=== PATIENT | female | born 1955 | race Caucasian/White ===

== ENCOUNTER 2020-07-04 08:03 | Emergency (ER) | payer SELFPAY ==
[2020-07-04 08:04] VITALS: BP 137/69; PULSE 66; RESP 16; TEMP 36.6; O2SAT 98; BMI 22.6
--- NOTE | 2020-07-04 08:13 | HMH.EDNVD ---
ED Disposition Clinical Impression: Acute nausea with nonbilious vomiting, Acute diarrhea, Dehydration Urinary tract infection Qualifiers: Urinary tract infection type: acute cystitis Hematuria presence: with hematuria Qualified Code(s): N30.01 - Acute cystitis with hematuria Disposition: Home, Self-Care Condition on Discharge: Good Instructions: Nausea and Vomiting-Adult, DI for Diarrhea and Traveler's Diarrhea -- Adult, DI for Urinary Tract Infection (UTI) Prescriptions: Cefdinir [Omnicef 300mg Capsule] 300 mg PO BID 7 Days #14 cap Transmission Status: Pending to [id number] Ondansetron [Zofran 4mg ODT] 4 mg PO TIDP PRN #9 tab PRN Reason: Vomiting Transmission Status: Pending to [id number] Referrals: Moreno Almeida [Primary Care Provider] - Time of Disposition: 09:15 - Critical Care Critical Care Time: No Attestation: On 07/04/20, the high probability of a clinically significant, sudden or life threatening deterioration of the following system(s) required my full and direct attention, intervention and personal management. The time I documented below is in addition to time spent performing reported procedures but includes the following listed in this critical care notation. Medical Decision Making - Medical Records Medical records reviewed: Yes: I reviewed the patient's medical records. - Singh Inquiry Pt receiving controlled substance: No Vital Signs: 07/04/20 08:04 Temperature 97.8 F Temperature Source Oral Pulse Rate [Radial] 66 Respiratory Rate 16 Blood Pressure [Right Arm] 137/69 Blood Pressure Mean [Right Arm] 91 Blood Pressure Position [Right Arm] Sitting 02 Sat by Pulse Oximetry 98 Oxygen Delivery Method Room Air - Lab Data Lab Results 07/04/20 08:15: Urine Color Yellow, Urine Appearance Clear, Urine pH 6.0, Ur Specific [place] 1.020, Urine Protein Trace, Urine Glucose (UA) Negative, Urine Ketones 3+, Urine Blood 1+, Urine Nitrate Negative, Urine Bilirubin Negative, Urine Urobilinogen 0.2, Ur Leukocyte Esterase Negative, Urine RBC 5-10, Urine WBC 3-5, Ur Squamous Epith Cells 3-5, Urine Bacteria None 07/04/20 08:15: WBC 10.6, RBC 4.87, Hgb 13.8, Hct 42.7, MCV 87.7, MCH 28.4, MCHC 32.4, RDW 13.2, Plt Count 226, MPV 9.2, Neut % (Auto) 80.2 H, Lymph % (Auto) 14.0, [place] % (Auto) 4.8, Eos % (Auto) 0.8, Baso % (Auto) 0.2, Neut # (Auto) 8.5 H, Lymph # (Auto) 1.5, [place] # (Auto) 0.5, Eos # (Auto) 0.1, Baso # (Auto) 0.0 07/04/20 08:15: Sodium 138, Potassium 3.5, Chloride 105, Carbon Dioxide 23, Anion Gap 13.5, BUN 20 H, Creatinine 0.50 L, Estimated Creat Clear 49, Estimated GFR 124, Est GFR ( Amer) 150, Glucose 182 H, Calcium 9.5, Total Bilirubin 0.6, AST 36, ALT 27, Alkaline Phosphatase 65, Total Protein 7.8, Albumin 4.8, Globulin 3.0, Albumin/Globulin Ratio 1.6, Lipase 182 Result diagrams: 07/04/20 08:15 07/04/20 08:15 Orders (Tests/Meds): ED MEDICATIONS Generic Name Dose Route Start Last Admin Trade Name Freq PRN Reason Stop Dose Admin Sodium Chloride 1,000 mls @ 999 mls/hr 07/04/20 08:15 07/04/20 08:34 Sod Chlor 0.9% 1000ml Bag IV 07/04/20 09:15 999 mls/hr .Q1H1M BRENDAN Administration Sodium Chloride 10 ml 07/04/20 08:15 Sodium Chloride 0.9% 10ml Flush Syringe IV 07/04/20 20:15 NEEDED PRN Maintain IV Site Discontinued Medications Generic Name Dose Route Start Last Admin Trade Name Freq PRN Reason Stop Dose Admin Ondansetron HCl 4 mg 07/04/20 08:15 07/04/20 08:34 Ondansetron 4mg/2ml Vial IV 07/04/20 08:16 4 mg ONCE ONE Administration - Reevaluation(s) Time: 09:14 Reevaluation #1: Patient feeling well with no further episodes of vomiting. Discussed plan of care and appropriate return precautions including fever bloody diarrhea or severe abdominal pain. Discussed plan for prescriptions and follow-up. Medical Decision Narrative: 65-year-old female who presents with nausea vomiting and diarrhea for 2
[2020-07-04 08:24] LABS: Microscopic, Urine URINE MICROSCOPIC (MICROSCOPIC)
[2020-07-04 08:31] LABS: Basophils % 0.2 % (0.1-2.0); Eosinophils # 0.1 K/mm3 (0.0-0.4); Eosinophils % 0.8 % (0.1-12.0); Hematocrit 42.7 % (37.0-47.0); Hemoglobin 13.8 g/dL (12.2-16.2); Lymphocytes # 1.5 K/mm3 (0.7-4.5); Mean Corpuscular HGB Conc 32.4 g/dL (31.8-35.4); Mean Corpuscular Hemoglobin 28.4 pg (27.0-31.2); Mean Corpuscular Volume 87.7 fl (81-99); Mean Platelet Volume 9.2 fl (7.4-10.4); Monocytes # 0.5 K/mm3 (0.1-1.0); Monocytes % 4.8 % (1.7-9.3); Neutrophils # 8.5 K/mm3 (1.8-7.8); Neutrophils % 80.2 % (37.0-80.0); Platelet Count 226 K/mm3 (142-424); Red Blood Count 4.87 M/mm3 (4.20-5.40); Red Cell Distribution Width 13.2 % (11.5-17.5); White Blood Count 10.6 K/mm3 (4.8-10.8)
[2020-07-04 08:37] LABS: Appearance,Urine CLEAR (Clear); Bilirubin,Urine Negative (Negative); Blood, Urine 1+ (Negative); Chloride 105 mmol/L (98-107); Color,Urine YELLOW (Yellow); Glucose,Urine (UA) Negative (Negative); Ketones,Urine 3+ (Negative); Leukocyte Esterase,Urine Negative (Negative); Nitrate,Urine Negative (Negative); Potassium 3.5 mmoL/L (3.5-5.1); Protein,Urine TRACE (Negative); Sodium 138 mmol/L (136-145); Urobilinogen,Urine 0.2 EU/dl (0.2)
[2020-07-04 08:40] LABS: Alanine Aminotransferase 27 U/L (12-78); Albumin Level 4.8 g/dl (3.5-5.0); Albumin/Globulin Ratio 1.6 (1.1-1.8); Alkaline Phosphatase 65 U/L (38-126); Anion Gap 13.5 mEq/L (5-15); Aspartate Amino Transferase 36 U/L (14-36); Bilirubin,Total 0.6 mg/dl (0.2-1.3); Blood Urea Nitrogen 20 mg/dl (7-17); Calcium 9.5 mg/dl (8.4-10.2); Carbon Dioxide 23 mmol/L (22.0-30.0); Creatinine Clearance Estimated 49 mL/min (50-200); Estimated Glomerular Filt Rate 124 ml/min (>60); GFR (African American) 150 ML/MIN (>60); Glucose 182 mg/dl (74-100); Lipase 182 U/L (23-300); Total Protein,Serum 7.8 g/dl (6.3-8.2)
--- NOTE | 2020-07-04 09:52 | PC.NURSE ---
pt with rad. VS delayed.
[2020-07-04 09:54] VITALS: BP 129/74; PULSE 78; RESP 16; TEMP 36.6; O2SAT 98
== END 2020-07-04 09:55 | disposition home or self-care (01) ==
PROVIDERS: Emergency Provider Student in an Organized Health Care Education/Training Program; PCP Pediatrics
DX: N30.01 Acute cystitis with hematuria (principal); E86.0 Dehydration
CPT/HCPCS: 80053; 81001; 83690; 85025; 96365; 96375; 99282; J2405

== ENCOUNTER → 2022-04-18 08:04 | Outpatient (CLI) | payer SELFPAY ==
[2022-04-18 09:50] LABS: Alanine Aminotransferase 16 U/L (12-78); Albumin Level 4.3 g/dl (3.5-5.0); Albumin/Globulin Ratio 1.8 (1.1-1.8); Alkaline Phosphatase 75 U/L (38-126); Anion Gap 10.6 mEq/L (5-15); Aspartate Amino Transferase 26 U/L (14-36); Bilirubin,Total 0.3 mg/dl (0.2-1.3); Blood Urea Nitrogen 16 mg/dl (7-17); Carbon Dioxide 28 mmol/L (22.0-30.0); Chloride 106 mmol/L (98-107); Chol/HDL Ratio 2.3 (1-3.5); Cholesterol 150 mg/dl (140-200); Estimated Glomerular Filt Rate 124 ml/min (>60); GFR (African American) 150 ML/MIN (>60); Globulin 2.4 g/dL (1.3-3.2); Glucose 144 mg/dl (74-100); HDL Cholesterol 65 mg/dl (40-60); Potassium 4.6 mmoL/L (3.5-5.1); Sodium 140 mmol/L (136-145); Total Protein,Serum 6.7 g/dl (6.3-8.2); Triglycerides 85 mg/dl (30-150); VLDL Cholesterol 17 mg/dL (0-40)
[2022-04-18 10:01] LABS: Direct LDL Cholesterol 72.34 mg/dL (100-129)
[2022-04-18 10:07] LABS: T4 (Thyroxine) 9.1 ug/dl (5.53-11.0)
[2022-04-18 18:45] LABS: Hemoglobin A1C 7.2 % (4.0-6.0)
[2022-04-20 13:17] LABS: Triiodothyronine (T3) Total 113 ng/dL (71-180)
== END ==
PROVIDERS: PCP Pediatrics; Visit Provider Pediatrics
DX: E11.69 Type 2 diabetes mellitus with other specified complication (principal); E03.9 Hypothyroidism, unspecified
CPT/HCPCS: 36415; 80053; 80061; 83036; 84436; 84443; 84480; 84481

== ENCOUNTER → 2022-09-18 06:56 | Outpatient (CLI) | payer SELFPAY ==
[2022-09-18 09:24] LABS: Creatinine,Urine Random 61 mg/dL (Not Estab.)
[2022-09-18 09:29] LABS: Alanine Aminotransferase 25 U/L (12-78); Albumin Level 3.8 g/dl (3.5-5.0); Albumin/Globulin Ratio 1.7 (1.1-1.8); Alkaline Phosphatase 80 U/L (38-126); Anion Gap 8.1 mEq/L (5-15); Aspartate Amino Transferase 28 U/L (14-36); Bilirubin,Total 0.2 mg/dl (0.2-1.3); Blood Urea Nitrogen 13 mg/dl (7-17); Calcium 8.8 mg/dl (8.4-10.2); Carbon Dioxide 27 mmol/L (22.0-30.0); Chloride 107 mmol/L (98-107); Chol/HDL Ratio 1.9 (1-3.5); Cholesterol 138 mg/dl (140-200); Estimated Glomerular Filt Rate 160 ml/min (>60); GFR (African American) 193 ML/MIN (>60); Globulin 2.3 g/dL (1.3-3.2); Glucose 160 mg/dl (74-100); HDL Cholesterol 72 mg/dl (40-60); Microalbumin < 6.000 mg/L (0-16.7); Potassium 4.1 mmoL/L (3.5-5.1); Sodium 138 mmol/L (136-145); Total Protein,Serum 6.1 g/dl (6.3-8.2); Triglycerides 147 mg/dl (30-150); VLDL Cholesterol 29 mg/dL (0-40)
[2022-09-18 09:48] LABS: Hemoglobin A1C 7.9 % (4.0-6.0)
[2022-09-18 09:59] LABS: Thyroid Stimulating Hormone 1.26 uIU/mL (0.465-4.68)
[2022-09-19 12:13] LABS: C-Peptide 1.5 ng/mL (1.1-4.4)
[2022-10-24 08:04] LABS: Fructosamine 310
== END ==
PROVIDERS: PCP Pediatrics; Visit Provider Specialist
DX: E11.65 Type 2 diabetes mellitus with hyperglycemia (principal); E11.69 Type 2 diabetes mellitus with other specified complication; E78.5 Hyperlipidemia, unspecified; Z79.84 Long term (current) use of oral hypoglycemic drugs
CPT/HCPCS: 36415; 80053; 80061; 82043; 82570; 82985; 83036; 84443; 84681

== ENCOUNTER 2024-06-27 08:50 | Observation (INO) | payer SELFPAY ==
[2024-06-27] VITALS (10 sets, daily range): BP systolic 112–140; BP diastolic 46–60; PULSE 65–80; RESP 14–18; TEMP 36.4–37.1; O2SAT 97–100; BMI 24.1; BMI 24.0
--- NOTE | 2024-06-27 08:56 | HMH.EDGENADL ---
Discharge Plan Disposition Patient Disposition: Admitted Clinical Impressions Clinical Impression: Pancreatitis Discharge ED Provider: Alexys Garcia General Adult HPI General Chief complaint: Nausea/Vomiting/Diarrhea Stated complaint: V/D x 2xdays, abd pain Time Seen by Provider: 06/27/24 08:56 History of Present Illness HPI narrative: Cinda Sky is a 69y female with a history of diabetes mellitus on metformin and high cholesterol who presents to the emergency department for nausea, vomiting, diarrhea and abdominal pain that began yesterday. Patient states that she has had episodes of nausea, vomiting, diarrhea and epigastric abdominal pain that have occurred in the past after eating greasy foods. She states that she is been worked up at an outside hospital with a right upper quadrant ultrasound earlier this year that was negative for any gallbladder pathology. She states that last night, 3 hours after eating, she developed pain in her epigastric region as well as nonbilious nonbloody vomiting and nonbloody diarrhea. She states that the pain does not radiate and is localized to her epigastric region. She also reports that she has had some burning with urination that began today, although she has not been able to eat anything since earlier yesterday. She denies any chest pain or shortness of breath or fever. Related Data Home Medications ?Medication ?Instructions ?Recorded ?Confirmed glimepiride 1 mg tablet 1 mg PO DAILY 06/27/24 06/27/24 metformin 750 mg tablet,extended 750 mg PO DAILY 06/27/24 06/27/24 release 24 hr pioglitazone 30 mg tablet 30 mg PO DAILY 06/27/24 06/27/24 rosuvastatin 20 mg tablet 20 mg PO AM 06/27/24 06/27/24 Allergies Allergy/AdvReac Type Severity Reaction Status Date / Time lisinopril Allergy allergy Verified 06/27/24 09:52 [facility] Disclaimer: The information contained in this section may have been updated after the patient was seen, as this information can be updated by other users. Medical History Hyperlipidemia Diabetes mellitus, type 2 Family History Other Thyroid cancer Social History Smoking Status: Never smoker alcohol intake: never substance use type: denies use current occupational status: retired Travel in the last 8 weeks: None Other Medical History Have you received the Flu Vaccine for this season: Yes Have you received the Pneumonia Vaccine: No ROS Obtained: Yes Systems reviewed as appropriate & no additional complaints except as documented Physical Exam General General appearance: alert and in no apparent distress Comment: Appears uncomfortable Head Head exam: atraumatic Eye Eye exam: Present normal appearance ENT ENT exam: Present normal external ear exam Neck Neck exam: Present full ROM Chest Chest inspection: Present symmetric chest wall rise Respiratory Respiratory exam: Present normal lung sounds bilaterally; Absent respiratory distress Cardiovascular Cardiovascular exam: Present regular rate and normal rhythm Abdominal Exam Abdominal exam: Present soft, tenderness (Epigastric region with guarding in this area) and guarding; Absent distention or rebound Extremities Exam Extremities exam: Present normal inspection Back Exam Back exam: Present normal inspection Neurological Exam Neurological exam: Present alert and oriented X3 Psychiatric Psychiatric exam: Present normal affect Skin Skin exam: Present warm and dry Medical Decision Making Medical Records Screening: Per USPSTF and CDC recommendations, given the prevalence of disease in our region, it is our hospital?s policy to screen for HIV and viral Hepatitis for all patients aged 18 and over and those with ongoing risk factors. Singh Inquiry Pt receiving controlled substance: No Vital Signs: 06/27/24 08:55 06/27/24 09:00 06/27/24 09:01 Temperature 97.6 F Temperature Source Oral Pulse Rate 79 71 Pulse Rate [Right] 79 Respiratory Rate 16 Blood Pressure 140/48 L 124/57 L Blood Pressure [Right Arm] 140/48 L Blood Pressure Mean [Right Arm] 78 Blood Pressure Source Blood Pressure Source [Right Arm] Automatic Cuff Blood Pressure Position Blood Pressure Position [Right Arm] Sitting 02 Sat by Pulse Oximetry 100 100 100 Oxygen Delivery Method Room Air 06/27/24 09:31 06/27/24 10:28 06/27/24 10:30 Temperature Temperature Source Pulse Rate 71 67 67 Pulse Rate [Right] Respiratory Rate 18 14 Blood Pressure 128/48 L 112/47 L 124/46 L Blood Pressure [Right Arm] Blood Pressure Mean [Right Arm] Blood Pressure Source Blood Pressure Source [Right Arm] Blood Pressure Position Blood Pressure Position [Right Arm] 02 Sat by Pulse Oximetry 99 100 100 Oxygen Delivery Method Room Air Room Air 06/27/24 11:01 06/27/24 11:41 Temperature 97.6 F Temperature Source Oral Pulse Rate 65 65 Pulse Rate [Right] Respiratory Rate 17 16 Blood Pressure 119/47 L 119/47 L Blood Pressure [Right Arm] Blood Pressure Mean [Right Arm] Blood Pressure Source Automatic Cuff Blood Pressure Source [Right Arm] Blood Pressure Position Supine Blood Pressure Position [Right Arm] 02 Sat by Pulse Oximetry 99 Oxygen Delivery Method Room Air Room Air Lab Data Lab Results 06/27/24 08:56: Urine Color Yellow, Urine Appearance Clear, Urine pH 6.0, Ur Specific [place] >= 1.030, Urine Protein Negative, Urine Glucose (UA) Negative, Urine Ketones 2+, Urine Blood 2+ A, Urine Nitrate Negative, Urine Bilirubin Negative, Urine Urobilinogen 0.2, Ur Leukocyte Esterase Negative, Urine RBC 5-10, Urine WBC Occasional, Ur Squamous Epith Cells Occasional, Urine Bacteria Trace 06/27/24 09:12: WBC 8.3, RBC 4.41, Hgb 12.9, Hct 38.1, MCV 86.4, MCH 29.3, MCHC 33.9, RDW 13.2, Plt Count 173, MPV 10.8 H, Neut % (Auto) 88.7 H, Lymph % (Auto) 5.9 L, [place] % (Auto) 4.8, Eos % (Auto) 0.1, Baso % (Auto) 0.1, Neut # (Auto) 7.3, Lymph # (Auto) 0.5 L, [place] # (Auto) 0.4, Eos # (Auto) 0.0, Baso # (Auto) 0.0, Total Counted 100, Neutrophils % (Manual) 84 H, Lymphocytes % (Manual) 8 L, Monocytes % (Manual) 7, Eosinophils % (Manual) 1, Platelet Estimate Normal, RBC Morphology Normal, Sodium 137, Potassium 3.6, Chloride 104, Carbon Dioxide 25, Anion Gap 11.6, BUN 18 H, Creatinine 0.50 L, Estimated Creat Clear 49, Estimated GFR 123, Est GFR ( Amer) 148, Glucose 170 H, Calcium 8.9, Total Bilirubin 0.8, AST 46 H, ALT 30, Alkaline Phosphatase 66, Troponin I < 0.01, Total Protein 7.6, Albumin 4.6, Globulin 3.0, Albumin/Globulin Ratio 1.5, Triglycerides 43, Lipase 2644 H, HCV Ab SEN w/Rflx PCR Qn Negative, HIV Ag/Ab Combo Qual Negative 06/27/24 09:15: VBG pH 7.39, VBG pCO2 40.7, VBG pO2 64.3 H, VBG HCO3 24.1, VBG Total CO2 25.3, VBG O2 Saturation 92.6 H, VBG Base Excess -0.9, VBG Lactic Acid 1.1 06/27/24 09:12 06/27/24 09:12 Orders (Tests/Meds): ED MEDICATIONS Generic Name Dose Route Start Last Admin Trade Name Freq PRN Reason Stop Dose Admin Acetaminophen 650 mg 06/27/24 12:10 Acetaminophen 325mg Tab PO 07/27/24 12:09 Q4HP PRN Fever or Mild Pain (1-3) Enoxaparin Sodium 40 mg 06/28/24 09:00 Enoxaparin 40mg/0.4ml Syringe SUBCUT 07/28/24 08:59 DAILY [facility] Lactated Ringer's 1,000 mls @ 10 mls/hr 06/27/24 12:15 Lactated Ringer's 1000 Ml Bag IV 07/27/24 12:14 .Q25H [facility] Insulin Human Lispro 0 unit 06/27/24 16:30 Humalog 100 Units/Ml 10ml Vial (Ssi) SUBCUT 07/27/24 16:29 ACHS [facility] Protocol Ketorolac Tromethamine 30 mg 06/27/24 12:10 Ketorolac 30mg/Ml Vial IV 07/02/24 12:09 Q6HP PRN Moderate Pain (4-6) Morphine Sulfate 2 mg 06/27/24 12:10 Morphine 2mg/Ml Syringe IV 07/27/24 12:09 Q4HP PRN Moderate Pain (4-6) Morphine Sulfate 4 mg 06/27/24 12:10 Morphine 4mg/Ml Syringe IV 07/27/24 12:09 Q4HP PRN Severe Pain (7-10) Ondansetron HCl 4 mg 06/27/24 12:10 06/27/24 12:21 Ondansetron 4mg/2ml Vial IV 07/27/24 12:09 4 mg Q8HP PRN Administration Nausea Discontinued Medications Generic Name Dose Route Start Last Admin Trade Name Freq PRN Reason Stop Dose Admin Sodium Chloride 1,000 mls @ 999 mls/hr 06/27/24 08:57 06/27/24 09:19 Sod Chlor 0.9% 1000ml Bag IV 06/27/24 09:57 999 mls/hr .Q1H1M ONE Administration Iopamidol 75 ml 06/27/24 10:02 06/27/24 10:03 Iopamidol-370 (76%);100ml Bottle IV 06/27/24 10:03 75 ml ONCE ONE Administration Ketorolac Tromethamine 15 mg 06/27/24 09:41 06/27/24 09:46 Ketorolac 30mg/Ml Vial IV 06/27/24 09:42 15 mg ONCE ONE Administration Ondansetron HCl 4 mg 06/27/24 08:57 06/27/24 09:19 Ondansetron 4mg/2ml Vial IV 06/27/24 08:58 4 mg ONCE ONE Administration Sodium Chloride 10 ml 06/27/24 10:02 06/27/24 10:03 Sodium Chloride 0.9% 10ml Syr (Rad Only) IV 06/27/24 10:03 10 ml ONCE ONE Administration Sodium Chloride 50 ml 06/27/24 10:02 06/27/24 10:03 0.9 % Sodium Chloride 50 Ml Vial IV 06/27/24 10:03 Not Given ONCE ONE ORDERS Category Date Time Status CT abdomen pelvis w con Stat Cat Scan 06/27/24 08:57 Completed POCUS Point of Care (ER Only) Stat Exams 06/27/24 09:02 Completed CBC w/Auto Diff [Complete Blood Count Auto Diff] Stat Lab 06/27/24 09:12 Completed CMP [Comprehensive Metabolic Panel] Stat Lab 06/27/24 09:12 Completed HIV Combo Stat Lab 06/27/24 09:12 Completed Hepatitis C Ab Qual. W/ RFX Stat Lab 06/27/24 09:12 Completed Lipase Stat Lab 06/27/24 09:12 Completed Triglycerides Stat Lab 06/27/24 09:12 Completed Troponin I Q3H Lab 06/27/24 12:15 Ordered Troponin I Q3H Lab 06/27/24 15:15 Ordered Troponin I Stat Lab 06/27/24 09:12 Completed UA [Urinalysis and Microscopic] Stat Lab 06/27/24 08:56 Completed VBG [Venous Blood Gas] Stat RT 06/27/24 09:15 Completed Medical Decision Narrative: Cinda Sky is a 69y female with a history of diabetes mellitus on metformin and high cholesterol who presents to the emergency department for nausea, vomiting, diarrhea and abdominal pain that began yesterday. Patient states that she has had episodes of nausea, vomiting, diarrhea and epigastric abdominal pain that have occurred in the past after eating greasy foods. She states that she is been worked up at an outside hospital with a right upper quadrant ultrasound earlier this year that was negative for any gallbladder pathology. She states that last night, 3 hours after eating, she developed pain in her epigastric region as well as nonbilious nonbloody vomiting and nonbloody diarrhea. She states that the pain does not radiate and is localized to her epigastric region. She also reports that she has had some burning with urination that began today, although she has not been able to eat anything since earlier yesterday. She denies any chest pain or shortness of breath or fever. On arrival, patient has wide pulse pressure with blood pressure 140/48, heart rate within normal limits, afebrile, breathing comfortably on room air with oxygen saturation at 100% SpO2. Physical exam, stated above, reveals an overall well-appearing female in no acute distress. She appears mildly uncomfortable. She has tenderness palpation in the epigastric region but no Hoover sign. She has no tenderness in the suprapubic region and her abdomen is not distended. Patient states that she checked her blood sugar this morning and it was 170. Cardiopulmonary exam is unremarkable. Patient states that she does not drink alcohol but has never been told that she has high triglycerides. She notes that she was started on a new diabetic medication, glimepiride, approximately 1 month ago for her diabetes but she does not take any injectable medications for weight loss Differential diagnosis includes, but is not limited to: Acute cholecystitis, acute pancreatitis, choledocholithiasis, symptomatic cholelithiasis, peptic ulcer disease, gastroenteritis, gastroparesis, ACS, DKA, among others. Workup in the emergency department included: [id number] right upper quadrant ultrasound, CBC, CMP, VBG, lactic acid, urinalysis, CT abdomen pelvis with IV contrast, troponin, EKG. Patient was treated symptomatically with 1 L normal saline as well as 4 mg of IV Zofran. EKG interpreted by me personally. Normal sinus rhythm. No ST elevation or depression. QTc normal at 411, parable normal at 156. Normal axis. Workup was significant for no leukocytosis, no anemia, VBG with pH normal at 7.39, pCO2 normal at 40.7 and bicarb normal at 24.1. CMP with no significant electrolyte derangements, LFTs with mildly elevated AST of 46, ALT normal at 30, alk phos normal at 66, bilirubin normal at 0.8. Urinalysis showed 2+ blood but negative leukocyte esterase, negative nitrites, occasional white blood cell on microscopy. Patient's lipase is significantly elevated at 2644 consistent with acute pancreatitis. Initial troponin less than 0.01, lactate normal at 1.1. [id number] right upper quadrant ultrasound demonstrated no gallstones, no biliary sludge, no pericholecystic fluid, negative Hoover sign, no thickened gallbladder wall, normal common bile duct diameter. See procedure note for details. Will administer 15 mg IV Toradol for acute pancreatitis as well as obtain triglyceride levels. CT imaging interpreted by me personally. There is some inflammation around the jejunum that could be evidence of peripancreatic fat stranding. See radiology report for final details Given patient's acute pancreatitis, which could be secondary to her new sulfonylurea as there is no other identifiable cause, I thought that she would benefit from admission for continued pain management and symptomatic relief. Patient was amenable to this plan. I discussed patient's case with hospitalist, Dr. Rodriguez, who was agreeable to admit the patient. Patient was then admitted to the hospitalist service for further management. Procedures Limited Ultrasound Indication:: Epigastric pain, N/V/D Interpretation:: Limited RUQ ultrasound Indication: Epigastric abdominal pain, nausea, vomiting, diarrhea Identified structures: -Gallbladder -Gallbladder wall -Common bile duct -Liver Findings: Sonographic Hoover sign: Absent Gallstones: Absent Sludge: Absent Pericholecystic fluid: Absent Maximal GB wall thickness (mm): Normal is </= 3mm Normal Common bile duct width (mm): Normal is </= 6mm Normal Impression: -Normal gallbladder Images were saved to permanent archive The study was technically adequate CPT 05910-09 This study was performed by me, and I personally interpreted all images/videos. Based on my clinical judgement, these images were adequate/inadequate and did/did not necessitate further imaging. Critical Care Critical Care Time Critical Care Time: Yes Attestation: On 06/27/24, the high probability of a clinically significant, sudden or life threatening deterioration of the following system(s) required my full and direct attention, intervention and personal management. The time I documented below is in addition to time spent performing reported procedures but includes the following listed in this critical care notation. Total Time Total Critical Care Time: 35
--- NOTE | 2024-06-27 08:57 | CT_ITS ---
PROCEDURE INFORMATION: Exam: CT Abdomen And Pelvis With Contrast Exam date and time: 06/27/2024 9:57 AM Age: 69 years old Clinical indication: Nausea and vomiting; Abdominal pain; Generalized; Additional info: N/v, abdominal pain TECHNIQUE: Imaging protocol: Computed tomography of the abdomen and pelvis with contrast. Radiation optimization: All CT scans at this facility use at least one of these dose optimization techniques: automated exposure control; mA and/or kV adjustment per patient size (includes targeted exams where dose is matched to clinical indication); or iterative reconstruction. Contrast material: ISOVUE; Contrast volume: 75 ml; Contrast route: IV; COMPARISON: No relevant prior studies available. FINDINGS: Lungs: Moderate patchy opacities in both lung bases likely represent atelectasis or infection. Liver: Normal. No mass. Gallbladder and biliary ducts: Normal. No calcified stones. No ductal dilation. Pancreas: Normal. No ductal dilation. Spleen: Normal. No splenomegaly. Adrenal glands: Normal. No mass. Kidneys and ureters: Normal. No hydronephrosis. Stomach and bowel: Mild jejunal wall thickening likely represents enteritis. Appendix: No evidence of appendicitis. Intraperitoneal space: No evidence of free air in the abdomen. Vasculature: Mild atherosclerotic calcifications affect the aorta and its branches. Lymph nodes: Unremarkable. No enlarged lymph nodes. Urinary bladder: Unremarkable as visualized. Reproductive: Unremarkable as visualized. Bones/joints: Unremarkable. No acute fracture. Soft tissues: Unremarkable. IMPRESSION: Moderate patchy opacities in both lung bases likely represent atelectasis or infection. Mild jejunal wall thickening likely represents enteritis.
[2024-06-27 09:00] LABS: Microscopic, Urine URINE MICROSCOPIC (MICROSCOPIC)
[2024-06-27 09:01] LABS: Appearance,Urine CLEAR (Clear); Bilirubin,Urine Negative (Negative); Blood, Urine 2+ (Negative); Color,Urine YELLOW (Yellow); Glucose,Urine (UA) Negative (Negative); Ketones,Urine 2+ (Negative); Leukocyte Esterase,Urine Negative (Negative); Nitrate,Urine Negative (Negative); Protein,Urine Negative (Negative); Specific Gravity, Urine >= 1.030 (1.005-1.030); Urobilinogen,Urine 0.2 EU/dl (0.2)
[2024-06-27 09:08] LABS: Bacteria,Urine Trace /lpf; Squamous Epithelial Cell,Urine Occasional #/hpf (0-5); WBC,Urine Occasional #/hpf (0-3)
--- NOTE | 2024-06-27 09:10 | PC.NURSE ---
Dr Garcia at bedside with POCUS
[2024-06-27] MEDS: 0.9 % SODIUM CHLORIDE 1000ML 1,000 ML 999 ML IV (09:19)
[2024-06-27] MEDS: ONDANSETRON 4MG/2ML VIAL 4 MG IV ×3 (09:19→17:30)
[2024-06-27 09:20] LABS: Basophils % 0.1 % (0.1-2.0); Eosinophils % 0.1 % (0.1-12.0); Hematocrit 38.1 % (37.0-47.0); Hemoglobin 12.9 g/dL (12.2-16.2); Lymphocytes # 0.5 K/mm3 (0.7-4.5); Lymphocytes % 5.9 % (10-50); Mean Corpuscular HGB Conc 33.9 g/dL (31.8-35.4); Mean Corpuscular Hemoglobin 29.3 pg (27.0-31.2); Mean Corpuscular Volume 86.4 fl (81-99); Mean Platelet Volume 10.8 fl (7.4-10.4); Monocytes # 0.4 K/mm3 (0.1-1.0); Monocytes % 4.8 % (1.7-9.3); Neutrophils # 7.3 K/mm3 (1.8-7.8); Neutrophils % 88.7 % (37.0-80.0); Nucleated Red Blood Cells # 0 10^3/uL; Nucleated Red Blood Cells % 0 %; Platelet Count 173 K/mm3 (142-424); Red Blood Count 4.41 M/mm3 (4.20-5.40); Red Cell Distribution Width 13.2 % (11.5-17.5); Red Cell Distribution Width-SD 41.4 fL; White Blood Count 8.3 K/mm3 (4.8-10.8)
[2024-06-27 09:23] LABS: Albumin Level 4.6 g/dl (3.5-5.0); Chloride 104 mmol/L (98-107); Sodium 137 mmol/L (136-145)
[2024-06-27 09:24] LABS: MANUAL DIFFERENTIAL MANUAL DIFFERENTIAL (MANUAL DIFF); Potassium 3.6 mmoL/L (3.5-5.1)
[2024-06-27 09:26] LABS: Lactate Venous 1.1 mmol/L (0.4-2.0); VBG Base Excess -0.9 mmol/L (-2.4-2.3); VBG HCO3 24.1 mmol/L (23-30); VBG Oxygen Saturation 92.6 % (50-70); VBG PCO2 40.7 mmol/L (35-51); VBG PH 7.39 mmol/L (7.31-7.41); VBG PO2 64.3 mmol/L (28-40); VBG Total CO2 25.3 mmol/L (23-27)
[2024-06-27 09:26] LABS: Alanine Aminotransferase 30 U/L (12-78); Albumin/Globulin Ratio 1.5 (1.1-1.8); Alkaline Phosphatase 66 U/L (38-126); Anion Gap 11.6 mEq/L (5-15); Aspartate Amino Transferase 46 U/L (14-36); Bilirubin,Total 0.8 mg/dl (0.2-1.3); Blood Urea Nitrogen 18 mg/dl (7-17); Carbon Dioxide 25 mmol/L (22.0-30.0); Creatinine Clearance Estimated 49 mL/min (50-200); Estimated Glomerular Filt Rate 123 ml/min (>60); GFR (African American) 148 ML/MIN (>60); Total Protein,Serum 7.6 g/dl (6.3-8.2)
[2024-06-27 09:27] LABS: Calcium 8.9 mg/dl (8.4-10.2); Glucose 170 mg/dl (74-100)
--- NOTE | 2024-06-27 09:29 | ECG_ITS ---
APPROVED REPORT Exam: Resting ECG HR:68 bpm ECG Measurements Heart Rate 68 AXES MI 156 P 84 QRSd 80 QRS 76 QT 394 T 80 QTc 411 Conclusion SINUS RHYTHM NONSPECIFIC ST & T-WAVE ABNORMALITY BORDERLINE ECG UNCONFIRMED REPORT Normal sinus rhythm No ST elevation or depression. QTc normal at 411 Electronically signed by : ELIECER SANDHU, 06/27/2024 14:23:56
[2024-06-27 09:39] LABS: Lipase 2644 U/L (23-300)
[2024-06-27 09:40] LABS: Troponin I < 0.01 ng/ml (0.00-0.034)
--- NOTE | 2024-06-27 09:43 | PC.NURSE ---
Dr Mix notified of critical lipase of 2,[phone]
[2024-06-27] MEDS: KETOROLAC 30MG/ML VIAL 15 MG IV (09:46)
--- NOTE | 2024-06-27 09:47 | PC.NURSE ---
pt to ct scan via wheelchair
[2024-06-27] MEDS: SODIUM CHLORIDE 0.9% 10ML SYR (RAD ONLY) 10 ML IV (10:03)
[2024-06-27] MEDS: IOPAMIDOL-370 (76%);100ML BOTTLE 75 ML IV (10:03)
[2024-06-27 10:04] LABS: Triglycerides 43 mg/dl (30-150)
[2024-06-27 10:06] LABS: Eosinophils % 1 % (0-3); Lymphocytes % 8 % (10-50); Monocytes % 7 % (2-9); Neutrophils % 84 % (42-76); Platelet Estimate Normal; RBC Morphology Normal; Total Cells Counted 100
[2024-06-27 10:46] LABS: HIV Combo NEGATIVE (Negative)
[2024-06-27 10:54] LABS: Hepatitis C Ab Qual. W/ RFX NEGATIVE (Negative)
--- NOTE | 2024-06-27 11:14 | PC.NURSE ---
gas distribution supervisor notified for admission and obtaining bed assignment
--- NOTE | 2024-06-27 11:39 | PC.NURSE ---
report given to nan chakraborty
[2024-06-27] MEDS: LACTATED RINGERS 1000ML 1,000 ML 100 ML IV (12:49)
[2024-06-27 13:27] LABS: Troponin I < 0.01 ng/ml (0.00-0.034)
[2024-06-27 16:28] LABS: POC Glucose,Bedside 146 (70-110)
[2024-06-27 17:41] LABS: Adenovirus F 40/41, stool Not Detected (NotDetected); Astrovirus Not Detected (NotDetected); Campylobacter Not Detected (NotDetected); Clostridium Difficile A/B, PCR Not Detected (NotDetected); Cryptosporidium Not Detected (NotDetected); Cyclospora Cayetanesis Not Detected (NotDetected); Entamoeba histolytica Not Detected (NotDetected); Enteroaggregative E coli Not Detected (NotDetected); Enteropathogenic E coli Not Detected (NotDetected); Enterotoxigenic E coli Not Detected (NotDetected); Giardia lamblia Not Detected (NotDetected); Norovirus Not Detected (NotDetected); Plesimonas Shigalloides, PCR Not Detected (NotDetected); Salmonella, PCR Not Detected (NotDetected); Sapovirus Not Detected (NotDetected); Shiga-like toxin E coli Not Detected (NotDetected); Shigella Enterovasive E coli Not Detected (NotDetected); Vibrio Cholerae Not Detected (NotDetected); Vibrio, PCR Not Detected (NotDetected); Yersinia Entercolitica, PCR Not Detected (NotDetected)
--- NOTE | 2024-06-27 18:51 | P.HP_ITS ---
History of Present Illness *Admission Date: 06/27/24 *Reason for visit:: Nausea/vomiting *History of present illness: Cinda Sky is a 69-year-old female with a medical history significant for type 2 diabetes presents with intractable abdominal pain, nausea/vomiting. She states it began yesterday after she ate a [place]ian meal with epigastric pain and concomitant nausea/vomiting. She states she has been having right-sided abdominal pain intermittently for the past several months. No history of known gallbladder issues, alcohol use. Triglyceride, calcium levels normal. Lipase 2644. CT abdomen/pelvis suggestive of mild jejunal enteritis. Case discussed with ED provider and decision was made to admit patient for acute pancreatitis. [facility] Disclaimer: The information contained in this section may have been updated after the patient was seen, as this information can be updated by other users. Medical History Hyperlipidemia Diabetes mellitus, type 2 Family History Other Thyroid cancer Social History (Updated 06/27/24 @ 12:26 by Alexys Garcia MD) Smoking Status: Never smoker alcohol intake: never substance use type: denies use current occupational status: retired Travel in the last 8 weeks: None Have you lived/traveled outside [place] in past 30 days?: No Contact w/someone who lives/traveled outside US past 30 days?: No Exposure to someone with infectious disease in past 14 days?: No Do you have a fever (greater than 100.4 F or 38 C)?: No Have you tested positive for COVID-19: No Exposed to someone with COVID-19 in past 14 days?: No Do you have a sore throat?: No Do you have a cough?: No Do you have any weakness?: No Do you have any diarrhea?: No Are you experiencing any unusual bleeding?: No Do you have any muscle aches/pain?: No Do you have any abdominal pain?: No Are you experiencing loss of taste or smell?: No Other Medical History Have you received the Flu Vaccine for this season: Yes Have you received the Pneumonia Vaccine: No Meds Home Medications and Allergies Home Medications ?Medication ?Instructions ?Recorded ?Confirmed ?Type glimepiride 1 mg tablet 1 mg PO DAILY 06/27/24 06/27/24 History metformin 750 mg tablet,extended 750 mg PO DAILY 06/27/24 06/27/24 History release 24 hr pioglitazone 30 mg tablet 30 mg PO DAILY 06/27/24 06/27/24 History rosuvastatin 20 mg tablet 20 mg PO HS 06/27/24 06/27/24 History New Prescriptions to Start Prescriptions: Allergies Allergy/AdvReac Type Severity Reaction Status Date / Time lisinopril Allergy allergy Verified 06/27/24 09:52 Exam Data for Last 24 hours Vital signs and Labs for Last 24 Hours: Temp Pulse Resp BP Pulse Ox O2 Del Method 98.8 F 73 14 118/60 99 Room Air 06/27/24 16:00 06/27/24 16:00 06/27/24 16:00 06/27/24 16:00 06/27/24 16:00 06/27/24 17:00 Laboratory Results - last 24 hr 06/27/24 08:56: Urine Color Yellow, Urine Appearance Clear, Urine pH 6.0, Ur Specific Strawberry >= 1.030, Urine Protein Negative, Urine Glucose (UA) Negative, Urine Ketones 2+, Urine Blood 2+ A, Urine Nitrate Negative, Urine Bilirubin N egative, Urine Urobilinogen 0.2, Ur Leukocyte Esterase Negative, Urine RBC 5-10, Urine WBC Occasional, Ur Squamous Epith Cells Occasional, Urine Bacteria Trace 06/27/24 09:12: WBC 8.3, RBC 4.41, Hgb 12.9, Hct 38.1, MCV 86.4, MCH 29.3, MCHC 33.9, RDW 13.2, Plt Count 173, MPV 10.8 H, Neut % (Auto) 88.7 H, Lymph % (Auto) 5.9 L, [place] % (Auto) 4.8, Eos % (Auto) 0.1, Baso % (Auto) 0.1, Neut # (Auto) 7.3, Lymph # (Auto) 0.5 L, [place] # (Auto) 0.4, Eos # (Auto) 0.0, Baso # (Auto) 0.0, Total Counted 100, Neutrophils % (Manual) 84 H, Lymphocytes % (Manual) 8 L, Monocytes % (Manual) 7, Eosinophils % (Manual) 1, Platelet Estimate Normal, RBC Morphology Normal, Sodium 137, Potassium 3.6, Chloride 104, Carbon Dioxide 25, Anion Gap 11.6, BUN 18 H, Creatinine 0.50 L, Estimated Creat Clear 49, Estimated GFR 123, Est GFR ( Amer) 148, Glucose 170 H, Calcium 8.9, Total Bilirubin 0.8, AST 46 H, ALT 30, Alkaline Phosphatase 66, Troponin I < 0.01, Total Protein 7.6, Albumin 4.6, Globulin 3.0, Albumin/Globulin Ratio 1.5, Triglycerides 43, Lipase 2644 H, HCV Ab SEN w/Rflx PCR Qn Negative, HIV Ag/Ab Combo Qual Negative 06/27/24 09:15: VBG pH 7.39, VBG pCO2 40.7, VBG pO2 64.3 H, VBG HCO3 24.1, VBG Total CO2 25.3, VBG O2 Saturation 92.6 H, VBG Base Excess -0.9, VBG Lactic Acid 1.1 06/27/24 12:45: Troponin I < 0.01 06/27/24 16:18: POC Glucose 146 H I & O for Last 24 hours: Intake & Output 06/24/24 06/25/24 06/26/24 06/27/24 23:59 23:59 23:59 23:59 Intake Total 450 / 450 Output Total 0 / 0 Balance 450 / 450 Weight 57.748 kg Constitutional Constitutional: no acute distress *Routine HEENT Exam Head: Present normocephalic Eye: Present EOMI and PERRL ENT: Present mucous membranes moist *Routine Neck Exam Neck: Present supple; Absent lymphadenopathy *Routine Respiratory Exam Respiratory: Present CTA bilaterally *Routine Cardiovascular Exam Cardiovascular: Present RRR *Routine Abdominal Exam Abdominal: Present soft, normoactive bowel sounds and tenderness Comments: Moderate epigastric tenderness to palpation. *Routine Rectal Exam Rectal:: deferred *Routine Genitalia Exam Genitalia:: deferred *Routine Extremities Exam Extremities: Absent cyanosis, clubbing or edema *Routine Skin Exam Skin: Present warm; Absent rash *Routine Neurological Exam Neurological: Present alert and oriented X3 Assessment and Plan *Assessment and plan (1) Pancreatitis: Status: Acute Category: Medical Code(s): K85.90 - Acute pancreatitis without necrosis or infection, unspecified Plan Cinda Sky is a 69-year-old female with a medical history significant for type 2 diabetes presents with intractable abdominal pain, nausea/vomiting. She states it began yesterday after she ate a [place]ian meal with epigastric pain and concomitant nausea/vomiting. She states she has been having right-sided abdominal pain intermittently for the past several months. No history of known gallbladder issues, alcohol use. Triglyceride, calcium levels normal. Lipase 2644. CT abdomen/pelvis suggestive of mild jejunal enteritis. Case discussed with ED provider and decision was made to admit patient for acute pancreatitis. #Acute pancreatitis ? Presented with epigastric abdominal pain, nausea/vomiting. Lipase 2644. ? Denies alcohol use, triglycerides and calcium levels normal. ? POCUS in the ED did not reveal gallstones. AST mildly elevated to 46, rest of LFTs normal. ? Will treat symptomatically and advance diet as tolerated. ? LR at 100 mL/h. ? For liquid diet, will advance to low-fat diet tomorrow. ? Will consider formal RUQ ultrasound if symptoms not improving. ? Patient does take rosuvastatin, glimepiride that these medications carry a very low risk of pancreatitis. Will hold at this time. #Type 2 diabetes ? Hemoglobin A1c 7.9%. ? ACHS glucose checks, LDSSI. Full code DVT prophylaxis: Lovenox 40 mg
[2024-06-27 20:51] LABS: Rotavirus A Detected (NotDetected)
[2024-06-27 20:55] LABS: POC Glucose,Bedside 110 (70-110)
[2024-06-28 03:16] VITALS: BMI 24.1
[2024-06-28 04:00] VITALS: BP 127/58; PULSE 82; RESP 18; TEMP 36.8; O2SAT 99; BMI 24.3
[2024-06-28 06:56] LABS: POC Glucose,Bedside 125 (70-110)
[2024-06-28 08:00] VITALS: BP 145/54; PULSE 77; RESP 16; TEMP 37.4; O2SAT 100
[2024-06-28 08:07] LABS: Basophils % 0.2 % (0.1-2.0); Lymphocytes # 0.7 K/mm3 (0.7-4.5); Monocytes # 0.5 K/mm3 (0.1-1.0); Nucleated Red Blood Cells # 0 10^3/uL; Nucleated Red Blood Cells % 0 %; Platelet Count 156 K/mm3 (142-424); White Blood Count 6.5 K/mm3 (4.8-10.8)
[2024-06-28 08:16] LABS: Albumin Level 3.6 g/dl (3.5-5.0); Chloride 103 mmol/L (98-107); Sodium 135 mmol/L (136-145)
[2024-06-28 08:19] LABS: Alanine Aminotransferase 29 U/L (12-78); Albumin/Globulin Ratio 1.4 (1.1-1.8); Alkaline Phosphatase 44 U/L (38-126); Aspartate Amino Transferase 50 U/L (14-36); Bilirubin,Total 0.3 mg/dl (0.2-1.3); Blood Urea Nitrogen 11 mg/dl (7-17); Calcium 8.1 mg/dl (8.4-10.2); Carbon Dioxide 23 mmol/L (22.0-30.0); Creatinine Clearance Estimated 50 mL/min (50-200); Estimated Glomerular Filt Rate 123 ml/min (>60); GFR (African American) 148 ML/MIN (>60); Globulin 2.6 g/dL (1.3-3.2); Glucose 132 mg/dl (74-100); Magnesium 1.5 mg/dl (1.6-2.3); Total Protein,Serum 6.2 g/dl (6.3-8.2)
[2024-06-28 08:20] LABS: Hematocrit 34.3 % (37.0-47.0); Lymphocytes % 10.1 % (10-50); Mean Corpuscular HGB Conc 33.2 g/dL (31.8-35.4); Mean Corpuscular Hemoglobin 28.8 pg (27.0-31.2); Mean Corpuscular Volume 86.6 fl (81-99); Mean Platelet Volume 11.4 fl (7.4-10.4); Monocytes % 7.5 % (1.7-9.3); Neutrophils # 5.4 K/mm3 (1.8-7.8); Red Blood Count 3.96 M/mm3 (4.20-5.40); Red Cell Distribution Width 13.7 % (11.5-17.5); Red Cell Distribution Width-SD 42.5 fL
[2024-06-28 08:22] LABS: Hemoglobin 11.4 g/dL (12.2-16.2)
[2024-06-28 08:30] LABS: Anion Gap 12.2 mEq/L (5-15); Potassium 3.2 mmoL/L (3.5-5.1)
[2024-06-28] MEDS: KETOROLAC 30MG/ML VIAL 30 MG IV (09:12)
[2024-06-28] MEDS: ONDANSETRON 4MG/2ML VIAL 4 MG IV (09:15)
--- NOTE | 2024-06-28 10:17 | P.DS_ITS ---
General Admission date:: 06/27/24 HPI HPI HPI: Cinda Sky is a 69-year-old female with a medical history significant for type 2 diabetes presents with intractable abdominal pain, nausea/vomiting. She states it began yesterday after she ate a [place] meal with epigastric pain and concomitant nausea/vomiting. She states she has been having right-sided abdominal pain intermittently for the past several months. No history of known gallbladder issues, alcohol use. Triglyceride, calcium levels normal. Lipase 2644. CT abdomen/pelvis suggestive of mild jejunal enteritis. Case discussed with ED provider and decision was made to admit patient for acute pancreatitis. Hospital Course Hospital Course Hospital Course: Cinda Sky is a 69-year-old female with a medical history significant for type 2 diabetes presents with intractable abdominal pain, nausea/vomiting. She states it began yesterday after she ate a Vietnamese meal with epigastric pain and concomitant nausea/vomiting. She states she has been having right-sided abdominal pain intermittently for the past several months. No history of known gallbladder issues, alcohol use. Triglyceride, calcium levels normal. Lipase 2644. CT abdomen/pelvis suggestive of mild jejunal enteritis. Case discussed with ED provider and decision was made to admit patient for acute pancreatitis. #Acute pancreatitis ? Presented with epigastric abdominal pain, nausea/vomiting. Lipase 2644. ? Denies alcohol use, triglycerides and calcium levels normal. ? POCUS in the ED did not reveal gallstones. AST mildly elevated to 46, rest of LFTs normal. ? Of note, patient also has rotavirus gastroenteritis. 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 She was also restarted on glimepiride which carries a very low risk of pancreatitis. Has been discontinued, see below. ? Also, patient reportedly had a gallbladder ultrasound earlier this year without gallstones. ? Clinically improved with IV fluid resuscitation, and advising diet as tolerated. Currently tolerating diet without nausea/vomiting. Diarrhea also resolved. ? Advanced to continue to advance diet as tolerated and follow-up with PCP. #Rotavirus gastroenteritis ? Positive on stool PCR, resolved during admission. #Type 2 diabetes ? Hemoglobin A1c 7.9%. ? Patient was recently started on glimepiride, has been having symptomatic hypoglycemia at home. Advised to discontinue. ? Continue home metformin 750 mg, pioglitazone 30 mg. Exam Data for Last 24 hours Vital signs and Labs for Last 24 Hours: Temp Pulse Resp BP Pulse Ox O2 Del Method 99.4 F 77 16 145/54 H 100 Room Air 06/28/24 08:00 06/28/24 08:00 06/28/24 08:00 06/28/24 08:00 06/28/24 08:00 06/28/24 09:32 Laboratory Results - last 24 hr 06/27/24 09:12: HCV Ab SEN w/Rflx PCR Qn Negative, HIV Ag/Ab Combo Qual Negative 06/27/24 12:45: Troponin I < 0.01 06/27/24 16:18: POC Glucose 146 H 06/27/24 17:25: Stl C. cayetanensis PCR Not detected, Stool Rotavirus (PCR) Detected A, Stl Adenov F 40/41 PCR Not detected, Stool Astrovirus (PCR) Not detected, Stool Campylobacter PCR Not detected, Stl C.difficile Tox PCR Not detected, Stool Cryptosporidium PCR Not detected, Stl E.coli Shiga Tox PCR Not detected, Stool E coli O157 PCR Not detected, Stl Enterotoxigenic E PCR Not detected, Stool EPEC (PCR) Not detected, Stool EAEC (PCR) Not detected, Stl E. histolytica PCR Not detected, Stool Giardia Lamblia PCR Not detected, Stool Salmonella PCR Not detected, Stool Sapovirus (PCR) Not detected, Stl P. shigelloides PCR Not detected, Stl Shigella/EIEC PCR Not detected, St Y.enterocolitica PCR Not detected, Stool Vibrio (PCR) Not detected, Stl Vibrio cholerae PCR Not detected, Stl Norovirus GI/GII PCR Not detected 06/27/24 20:41: POC Glucose 110 06/28/24 06:20: POC Glucose 125 H 06/28/24 06:30: WBC 6.5, RBC 3.96 L, Hgb 11.4 L D, Hct 34.3 L, MCV 86.6, MCH 28.8, MCHC 33.2, RDW 13.7, Plt Count 156, MPV 11.4 H, Neut % (Auto) 82.0 H, Lymph % (Auto) 10.1, [place] % (Auto) 7.5, Eos % (Auto) 0.0 L, Baso % (Auto) 0.2, Neut # (Auto) 5.4, Lymph # (Auto) 0.7, [place] # (Auto) 0.5, Eos # (Auto) 0.0, Baso # (Auto) 0.0, Sodium 135 L, Potassium 3.2 L, Chloride 103, Carbon Dioxide 23, Anion Gap 12.2, BUN 11 D, Creatinine 0.50 L, Estimated Creat Clear 50, E stimated GFR 123, Est GFR ( Amer) 148, Glucose 132 H D, Calcium 8.1 L, Magnesium 1.5 L, Total Bilirubin 0.3, AST 50 H, ALT 29, Alkaline Phosphatase 44, Total Protein 6.2 L, Albumin 3.6 D, Globulin 2.6, Albumin/Globulin Ratio 1.4 I & O for Last 24 hours: Intake & Output 06/25/24 06/26/24 06/27/24 06/28/24 23:59 23:59 23:59 23:59 Intake Total 450 / 450 Output Total 0 / 0 0 / 0 Balance 450 / 450 0 / 0 Weight 57.748 kg 58.513 kg Constitutional Constitutional: no acute distress *Routine HEENT Exam Head: Present normocephalic Eye: Present EOMI and PERRL ENT: Present mucous membranes moist *Routine Neck Exam Neck: Present supple; Absent lymphadenopathy *Routine Respiratory Exam Respiratory: Present CTA bilaterally *Routine Cardiovascular Exam Cardiovascular: Present RRR *Routine Abdominal Exam Abdominal: Present soft and normoactive bowel sounds; Absent tenderness *Routine Extremities Exam Extremities: Absent cyanosis, clubbing or edema *Routine Skin Exam Skin: Present warm; Absent rash *Routine Neurological Exam Neurological: Present alert and oriented X3 Results Data Completed and Pending Labs on day of discharge: Labs from last 24 hours 06/28/24 06/28/24 06/27/24 06:30 06:20 20:41 WBC 6.5 RBC 3.96 L Hgb 11.4 L D Hct 34.3 L MCV 86.6 MCH 28.8 MCHC 33.2 RDW 13.7 Plt Count 156 MPV 11.4 H Neut % (Auto) 82.0 H Lymph % (Auto) 10.1 [place] % (Auto) 7.5 Eos % (Auto) 0.0 L Baso % (Auto) 0.2 Neut # (Auto) 5.4 Lymph # (Auto) 0.7 [place] # (Auto) 0.5 Eos # (Auto) 0.0 Baso # (Auto) 0.0 Sodium 135 L Potassium 3.2 L Chloride 103 Carbon Dioxide 23 Anion Gap 12.2 BUN 11 D Creatinine 0.50 L Estimated Creat Clear 50 Estimated GFR 123 Est GFR ( Amer) 148 Glucose 132 H D POC Glucose 125 H 110 Calcium 8.1 L Magnesium 1.5 L Total Bilirubin 0.3 AST 50 H ALT 29 Alkaline Phosphatase 44 Troponin I Total Protein 6.2 L Albumin 3.6 D Globulin 2.6 Albumin/Globulin Ratio 1.4 Stl C. cayetanensis PCR Stool Rotavirus (PCR) Stl Adenov F 40/ PCR Stool Astrovirus (PCR) Stool Campylobacter PCR Stl C.difficile Tox PCR Stool Cryptosporidium PCR Stl E.coli Shiga Tox PCR Stool E coli O157 PCR Stl Enterotoxigenic E PCR Stool EPEC (PCR) Stool EAEC (PCR) Stl E. histolytica PCR Stool Giardia Lamblia PCR Stool Salmonella PCR Stool Sapovirus (PCR) Stl P. shigelloides PCR Stl Shigella/EIEC PCR St Y.enterocolitica PCR Stool Vibrio (PCR) Stl Vibrio cholerae PCR Stl Norovirus GI/GII PCR HCV Ab SEN w/Rflx PCR Qn HIV Ag/Ab Combo Qual 06/27/24 06/27/24 06/27/24 17:25 16:18 12:45 WBC RBC Hgb Hct MCV MCH MCHC RDW Plt Count MPV Neut % (Auto) Lymph % (Auto) [place] % (Auto) Eos % (Auto) Baso % (Auto) Neut # (Auto) Lymph # (Auto) [place] # (Auto) Eos # (Auto) Baso # (Auto) Sodium Potassium Chloride Carbon Dioxide Anion Gap BUN Creatinine Estimated Creat Clear Estimated GFR Est GFR ( Amer) Glucose POC Glucose 146 H Calcium Magnesium Total Bilirubin AST ALT Alkaline Phosphatase Troponin I < 0.01 Total Protein Albumin Globulin Albumin/Globulin Ratio Stl C. cayetanensis PCR Not detected Stool Rotavirus (PCR) Detected A Stl Adenov F 40 PCR Not detected Stool Astrovirus (PCR) Not detected Stool Campylobacter PCR Not detected Stl C.difficile Tox PCR Not detected Stool Cryptosporidium PCR Not detected Stl E.coli Shiga Tox PCR Not detected Stool E coli O157 PCR Not detected Stl Enterotoxigenic E PCR Not detected Stool EPEC (PCR) Not detected Stool EAEC (PCR) Not detected Stl E. histolytica PCR Not detected Stool Giardia Lamblia PCR Not detected Stool Salmonella PCR Not detected Stool Sapovirus (PCR) Not detected Stl P. shigelloides PCR Not detected Stl Shigella/EIEC PCR Not detected St Y.enterocolitica PCR Not detected Stool Vibrio (PCR) Not detected Stl Vibrio cholerae PCR Not detected Stl Norovirus GI/GII PCR Not detected HCV Ab SEN w/Rflx PCR Qn HIV Ag/Ab Combo Qual 06/27/24 09:12 WBC RBC Hgb Hct MCV MCH MCHC RDW Plt Count MPV Neut % (Auto) Lymph % (Auto) [place] % (Auto) Eos % (Auto) Baso % (Auto) Neut # (Auto) Lymph # (Auto) [place] # (Auto) Eos # (Auto) Baso # (Auto) Sodium Potassium Chloride Carbon Dioxide Anion Gap BUN Creatinine Estimated Creat Clear Estimated GFR Est GFR ( Amer) Glucose POC Glucose Calcium Magnesium Total Bilirubin AST ALT Alkaline Phosphatase Troponin I Total Protein Albumin Globulin Albumin/Globulin Ratio Stl C. cayetanensis PCR Stool Rotavirus (PCR) Stl Adenov F 40/41 PCR Stool Astrovirus (PCR) Stool Campylobacter PCR Stl C.difficile Tox PCR Stool Cryptosporidium PCR Stl E.coli Shiga Tox PCR Stool E coli O157 PCR Stl Enterotoxigenic E PCR Stool EPEC (PCR) Stool EAEC (PCR) Stl E. histolytica PCR Stool Giardia Lamblia PCR Stool Salmonella PCR Stool Sapovirus (PCR) Stl P. shigelloides PCR Stl Shigella/EIEC PCR St Y.enterocolitica PCR Stool Vibrio (PCR) Stl Vibrio cholerae PCR Stl Norovirus GI/GII PCR HCV Ab SEN w/Rflx PCR Qn Negative HIV Ag/Ab Combo Qual Negative DS: Diagnosis Discharge Diagnosis (1) Pancreatitis: Status: Acute Code(s): K85.90 - Acute pancreatitis without necrosis or infection, unspecified Meds Home Medications and Allergies Home Medications ?Medication ?Instructions ?Recorded ?Confirmed ?Type metformin 750 mg tablet,extended 750 mg PO DAILY 06/27/24 06/27/24 History release 24 hr pioglitazone 30 mg tablet 30 mg PO DAILY 06/27/24 06/27/24 History rosuvastatin 20 mg tablet 20 mg PO HS 06/27/24 06/27/24 History ondansetron 4 mg disintegrating 4 mg PO Q8H PRN nausea and 06/28/24 Rx tablet vomiting #7 tabs New Prescriptions to Start Prescriptions: ondansetron Thad Rodriguez Allergies Allergy/AdvReac Type Severity Reaction Status Date / Time lisinopril Allergy allergy Verified 06/27/24 09:52 Discharge Plan Disposition Patient Disposition: Home, Self-Care Condition: Fair Follow up Plan Follow up with: Moreno Almeida [Primary Care Provider] - Enter time for follow up (Please call Saturday for follow up) Prescriptions/Medication Reconciliation: New ondansetron 4 mg tablet,disintegrating 4 mg PO Q8H PRN (Reason: nausea and vomiting) Qty: 7 0RF Continued rosuvastatin 20 mg tablet 20 mg PO HS Patient Comments: TAKE 1 TABLET BY MOUTH EVERY DAY pioglitazone 30 mg tablet 30 mg PO DAILY Patient Comments: TAKE 1 TABLET BY MOUTH EVERY DAY metformin 750 mg tablet extended release 24 hr 750 mg PO DAILY Patient Comments: TAKE 1 TABLET BY MOUTH EVERY DAY Discontinued glimepiride 1 mg tablet 1 mg PO DAILY Patient Comments: TAKE 1 TABLET BY MOUTH IN THE MORNING Problem Reconciliation Problems Reviewed?: Yes Patient Discharge Instructions Patient Instructions: DI for Pancreatitis Print Language: Finnish Providers Primary Care Provider: Moreno Almeida Admit Provider: Thad Rodriguez Attending Provider: Thad Rodriguez
--- NOTE | 2024-06-29 14:30 | SW/DCPLANNER ---
patient is a and doesnt understand very much maltese Rashawn FRANCO [employer]isher
== END 2024-06-28 11:13 | disposition home or self-care (01) ==
LOC: ER 09:14 → 2ND 11:29
PROVIDERS: Admitting Provider Student in an Organized Health Care Education/Training Program; Emergency Provider Student in an Organized Health Care Education/Training Program; PCP Pediatrics; Visit Provider Student in an Organized Health Care Education/Training Program
DX: K85.90 Acute pancreatitis without necrosis or infection, unspecified (principal); E11.9 Type 2 diabetes mellitus without complications; E78.5 Hyperlipidemia, unspecified; A08.0 Rotaviral enteritis; Z88.8 Allergy status to other drugs, medicaments and biological substances; Z79.899 Other long term (current) drug therapy; Z79.84 Long term (current) use of oral hypoglycemic drugs
CPT/HCPCS: 36415; 74177; 80053; 81001; 82803; 82962; 83690; 83735; 84478; 84484; 85007; 85025; 85027; 86803; 87389; 87506; 93005; 99291; G0378; J1885; J2405; J7030; J7120; Q9967